=== PATIENT | female | born 1995 | race Caucasian/White ===

== ENCOUNTER 2022-02-03 12:18 | Day surgery (SDC) | payer BC ==
[2022-02-03] MEDS ORDERED: hydrALAZINE 20 MG/ML VIAL SLOW IVP PRN (13:11)
[2022-02-03 13:54] LABS: Fetal Membranes Rupture No Membranes Rupture (No Rupture)
== END 2022-02-03 14:15 | disposition home or self-care (01) ==
LOC: CSHLD/OP 12:18
PROVIDERS: ATTEND Obstetrics & Gynecology
DX: O99.891 Other specified diseases and conditions complicating pregnancy (principal); N89.8 Other specified noninflammatory disorders of vagina; Z3A.36 36 weeks gestation of pregnancy
CPT/HCPCS: 84112; 99283

== ENCOUNTER 2022-02-06 20:19 | Inpatient (IN) | payer BC ==
[~2022-02-06 20:19] MED LIST: Bupivacaine 0.25% HCL 30 ML VIAL ONE
[2022-02-06 20:44] VITALS: BMI 30.7
[2022-02-06] MEDS ORDERED: Misoprostol 200 MCG TAB PR PRN (21:16)
[2022-02-06] MEDS ORDERED: Carboprost 250 MCG/ML AMP IM PRN (21:16)
[2022-02-06] MEDS ORDERED: Diphenoxylate HCl/Atropine Tablet PO PRN (21:16)
[2022-02-06] MEDS ORDERED: Lidocaine 1% (PF) 30 ML VIAL SC PRN (21:16)
[2022-02-06] MEDS ORDERED: hydrALAZINE 20 MG/ML VIAL SLOW IVP PRN (21:16)
[2022-02-06] MEDS ORDERED: Methylergonovine 0.2 MG/ML VIAL IM PRN (21:16)
[2022-02-06] MEDS ORDERED: Ibuprofen 800 MG TAB PO PRN (21:16)
[2022-02-06] MEDS ORDERED: Ondansetron PF 4 MG/2 ML Vial IVP PRN (21:16)
[2022-02-06] MEDS ORDERED: Promethazine HCl 25 MG/ML VIAL IM PRN (21:16)
[2022-02-06] MEDS ORDERED: Butorphanol Tartrate 1 MG/ML VIAL SLOW IVP PRN (21:16)
[2022-02-06] MEDS ORDERED: HYDROcodone/Acetaminophen 5/325 mg Tablet PO PRN ×2 (21:16)
[2022-02-06] MEDS ORDERED: Acetaminophen 500 MG TAB PO PRN (21:16)
[2022-02-06] MEDS ORDERED: NS w/ Oxytocin 30 units 500 ML IV SCH ×2 (21:30)
[2022-02-06] MEDS ORDERED: Penicillin G Potassium 5 MILL.UNITS in Sodium Chloride 0.9% 100 ML IVPB SCH (21:30)
[2022-02-06] MEDS: Lactated Ringer's 1,000 ML IV SCH (22:40)
[2022-02-06 23:16] LABS: Hemoglobin 10.6 g/dL (12.0-15.5); Mean Corpuscular HGB CONC 33.8 g/dL (32.0-36.0); Mean Corpuscular Hemoglobin 29.9 pg (27.0-33.0); Mean Corpuscular Volume 88.7 fl (81.6-98.3); Mean Platelet Volume 10.2 fl (7.4-10.4); Platelet Count 247 10x3/uL (150-450); RBC Distribution Width 13.2 % (11.5-14.5); Red Blood Cell (RBC) Count 3.54 10x6/uL (3.90-5.03); White Blood Cell (WBC) Count 14.2 10x3/uL (3.5-10.5)
[2022-02-06 23:21] LABS: Creatinine, Urine 27.52 mg/dL (47-110); Protein, Urine Random Quant Less than 10 mg/dL (1-14)
[2022-02-06 23:23] LABS: ALT (SGPT) 12 U/L (8-55); AST (SGOT) 15 U/L (5-34); Albumin 3.2 g/dL (3.5-5.0); Alkaline Phosphatase 135 U/L (40-110); Anion Gap 15 mmol/L (10-20); BUN (Urea Nitrogen) 7 mg/dL (7.0-18.7); Bilirubin, Total 0.3 mg/dL (0.2-1.2); Calc. Creatinine Clearance 179 mL/min (70-130); Calcium 8.9 mg/dL (7.8-10.44); Carbon Dioxide 21 mmol/L (22-29); Chloride 104 mmol/L (98-107); Globulin 3.4 g/dL (2.4-3.5); Glucose 72 mg/dL (70-105); Potassium 3.8 mmol/L (3.5-5.1); Protein, Total 6.6 g/dL (6.0-8.3); Sodium 136 mmol/L (136-145)
[2022-02-06 23:41] LABS: Hep B Surf Ag Non-Reactive S/CO (NonReactive); Syphilis Antibody Nonreactive (Nonreactive); Syphilis Antibody Index 0.05 S/CO (<1.00 Non-Reactive)
[2022-02-06 23:43] LABS: HBSAg Index 0.16 S/CO (0-0.99)
[2022-02-07] MEDS: Misoprostol 100 MCG TAB PO SCH ×2 (01:52→06:37)
[2022-02-07] MEDS: Penicillin G 2.5 MILL.units 2.5 MILL.UNITS in Premix Bag 1 BAG IVPB SCH ×3 (02:32→17:35)
[2022-02-07] MEDS ORDERED: Fentanyl 2 mcg/Bup 0.1% Cadd 100 ML ONE ×2 (05:34→13:13)
[2022-02-07] MEDS ORDERED: Acetaminophen 325 MG TAB PO PRN (07:11)
[2022-02-07] MEDS ORDERED: diphenhydrAMINE 50 MG/ML VIAL IVP PRN (07:11)
[2022-02-07] MEDS ORDERED: Lactated Ringer's 500 ML IV PRN (07:11)
[2022-02-07] MEDS ORDERED: Promethazine HCl 25 MG/ML VIAL IM PRN (07:11)
[2022-02-07] MEDS ORDERED: ePHEDrine Sulfate 50 MG/10 ML VIAL SLOW IVP PRN (07:11)
[2022-02-07] MEDS ORDERED: Moisturizing Cream (Eucerin) 113 GM JAR TOP PRN (07:11)
[2022-02-07] MEDS ORDERED: Naloxone HCl 0.4 mg/ml Vial IVP PRN ×2 (07:11)
[2022-02-07] MEDS ORDERED: Ondansetron PF 4 MG/2 ML Vial IVP PRN ×2 (07:11→21:11)
[2022-02-07] MEDS ORDERED: Communication Order-Pharmacy FS SCH (07:15)
[2022-02-07] MEDS ORDERED: Fentanyl 2 mcg/Bupivacaine 0.1% Cassette 100 ML EPIDURAL SCH (07:15)
[2022-02-07] MEDS: Lactated Ringer's 1,000 ML IV SCH (19:00)
[2022-02-07] MEDS ORDERED: Bisacodyl 10 MG SUPP PR PRN (21:11)
[2022-02-07] MEDS ORDERED: Methylergonovine 0.2 MG/ML VIAL IM PRN (21:11)
[2022-02-07] MEDS ORDERED: Milk Of Magnesia 30 ML UDCUP PO PRN (21:11)
[2022-02-07] MEDS ORDERED: Misoprostol 200 MCG TAB VAG PRN (21:11)
[2022-02-07] MEDS ORDERED: Lanolin Ointment 7 GM TUBE TOP PRN (21:11)
[2022-02-07] MEDS ORDERED: hydrALAZINE 20 MG/ML VIAL SLOW IVP PRN (21:11)
[2022-02-07] MEDS ORDERED: Benzocaine-Menthol 82.5 ML CAN TOP PRN (21:11)
[2022-02-07] MEDS ORDERED: NS w/ Oxytocin 30 units 500 ML IV SCH (21:15)
[2022-02-07] MEDS: Ibuprofen 800 MG TAB PO SCH (22:52)
[2022-02-08] MEDS ORDERED: HYDROcodone/Acetaminophen 5/325 mg Tablet PO PRN ×2 (04:29)
[2022-02-08] MEDS: Ibuprofen 800 MG TAB PO SCH ×3 (05:15→21:21)
[2022-02-08] MEDS: Lactated Ringer's 1,000 ML IV SCH (08:11)
[2022-02-08] MEDS: Penicillin G 2.5 MILL.units 2.5 MILL.UNITS in Premix Bag 1 BAG IVPB SCH (08:11)
[2022-02-08] MEDS: Misoprostol 100 MCG TAB PO SCH (08:11)
[2022-02-08] MEDS: Ferrous Sulfate 325 MG TAB PO SCH ×2 (08:11→15:12)
[2022-02-08] MEDS: Prenatal Vitamin 1 TAB PO SCH (08:39)
[2022-02-08] MEDS: Docusate 100 MG CAP PO SCH ×2 (08:39→21:21)
[2022-02-09] MEDS: Ibuprofen 800 MG TAB PO SCH (05:31)
[2022-02-09 08:23] VITALS: BP 133/75; TEMP 97.7
[2022-02-09] MEDS: Ferrous Sulfate 325 MG TAB PO SCH (08:27)
[2022-02-09] MEDS: Prenatal Vitamin 1 TAB PO SCH (08:41)
[2022-02-09] MEDS: Docusate 100 MG CAP PO SCH (08:41)
== END 2022-02-09 13:00 | disposition home or self-care (01) | DRG 807 ==
LOC: CSHLD/OP 20:19 → CSHLD 22:50 → CSHPP 02-07 22:25
PROVIDERS: ADMIT Student in an Organized Health Care Education/Training Program; ATTEND Obstetrics & Gynecology
PROC: 10E0XZZ Delivery of Products of Conception, External Approach (ICD-10-PCS; principal; 2022-02-07)
PROC: 0UQMXZZ Repair Vulva, External Approach (ICD-10-PCS; 2022-02-07)
PROC: 0HQ9XZZ Repair Perineum Skin, External Approach (ICD-10-PCS; 2022-02-07)
DX: O42.013 Preterm premature rupture of membranes, onset of labor within 24 hours of rupture, third trimester (principal); Z37.0 Single live birth; Z3A.36 36 weeks gestation of pregnancy; O69.89X0 Labor and delivery complicated by other cord complications, not applicable or unspecified; O71.82 Other specified trauma to perineum and vulva; Z37.9 Outcome of delivery, unspecified; O70.0 First degree perineal laceration during delivery; O99.824 Streptococcus B carrier state complicating childbirth; Z79.899 Other long term (current) drug therapy; J45.909 Unspecified asthma, uncomplicated; O99.52 Diseases of the respiratory system complicating childbirth
CPT/HCPCS: 36415; 51702; 80053; 82570; 84112; 84156; 85027; 86780; 86850; 86900; 86901; 87340; 99283; J2540; J2590; J3490; J7120; S0020